=== PATIENT | male | born 2000 | race Caucasian/White ===

== ENCOUNTER 2022-09-06 21:50 | Emergency (ER) | payer OTHER ==
[~2022-09-06] VITALS: Ht 175.3 cm; Wt 103.2 kg
[2022-09-07 01:01] VITALS: BP 169/92
== END 2022-09-07 02:00 | disposition home or self-care (01) ==
LOC: M ED 21:50
DX: Z20.822 Contact with and (suspected) exposure to COVID-19 (principal)